=== PATIENT | female | born 1945 | race Caucasian/White ===

== ENCOUNTER 2020-10-01 12:18 | Outpatient (REF) | payer MEDICARE, SELFPAY ==
[2020-10-01 14:18] LABS: Prothrombin Time 11.3 SEC (9.9-13.0)
[2020-10-01 14:45] LABS: Erythrocyte Sedimentation Rate 4 MM/HR (0-20)
[2020-10-02 10:06] LABS: Syphilis Screen Nonreactive (Nonreactive)
[2020-10-02 21:16] LABS: Lyme Abs Screen <0.90 index
[2020-10-06 06:16] LABS: Angiotensin Converting Enzyme 24 U/L (9-67)
== END 2020-10-01 12:19 | disposition home or self-care (01) ==
LOC: HO.WFDLDS 12:18
PROVIDERS: Visit Provider Psychiatry & Neurology Neurology
DX: G51.0 Bell's palsy (principal)
CPT/HCPCS: 36415; 82164; 85610; 85652; 86617; 86618; 86780

== ENCOUNTER 2020-10-08 09:11 | Day surgery (SDC) | payer MEDICARE, SELFPAY ==
--- NOTE | ~2020-10-08 | FL_ITS ---
PROCEDURE: FLUOROSCOPY-GUIDED LUMBAR PUNCTURE CLINICAL INFORMATION: Facial neuropathy. COMPARISON: None TECHNIQUE: Following explaining fluoroscopy-guided lumbar puncture procedure, benefits and risk, a written consent was obtained. Patient was placed prone on fluoroscopy table and low back area was cleaned and draped in the usual sterile manner. 1% lidocaine was injected overlying the L4-L5 disc level. A 22-gauge spinal needle was then inserted from the skin intrathecally at the L4-L5 disc level. After observing CSF return, patient was quickly placed in the left lateral decubitus view and opening CSF pressure was obtained. Subsequently fluid was collected in 4 test tubes. The stylet was reintroduced and needle removed. Complete hemostasis achieved at puncture site with sterile dressing applied postprocedure. Patient tolerated procedure extremely well. FINDINGS: On this single image obtained on fluoroscopy the vertebral heights, alignment are maintained normal. There is sclerotic appearance of the left L2 and L3 pedicles and overlying vertebral body. Fluoroscopy-guided L3-L4 lumbar puncture performed. The opening CSF pressure measures 13 cm of water. Approximately 9 mL of clear CSF fluid collected in 4 test tubes and sent to lab as per referring physician's orders. FLUOROSCOPY TIME: 1.2 minutes. DOSE AREA PRODUCT: 15.197 uGy-m2 (microgray-meter squared). FL/FL guided lumbar puncture LP IMPRESSION: Successful fluoroscopy-guided lumbar puncture performed without immediate complications. Sclerotic appearing L2 and L3 pedicles.
[2020-10-08 09:25] LABS: MANUAL DIFF FLAG NO
[2020-10-08 09:26] LABS: Basophils Percent Auto 0.1 % (0-2); Eosinophils Percent Auto 0.1 % (0-4); Hemoglobin 15.7 g/dl (12.0-16.0); Imm Gran Abs Auto 0.06 X10*3/uL (0.00-0.03); Imm Gran Pct Auto 0.5 % (0.0-0.4); Lymphocytes Absolute Auto 1.3 X10*3/uL (1.2-4.9); Mean Corpuscular HGB Conc 32.7 g/dl (31.0-35.0); Mean Corpuscular Hemoglobin 28.1 pg (27.0-33.0); Mean Platelet Volume 10.1 fL (9.4-12.3); Monocytes Absolute Auto 0.8 X10*3/uL (0.1-1.2); Monocytes Percent Auto 7.3 % (2-11); Neutrophils Absolute Auto 8.8 X10*3/uL (2.0-8.3); Platelet Count 229 X10*3/uL (160-400); Red Blood Count 5.58 X10*6/uL (4.20-5.50); Red Cell Distribution Width 14.2 % (11.0-16.0); White Blood Count 10.9 X10*3/uL (4.8-10.8)
[2020-10-08 09:27] VITALS: BMI 37.8
[2020-10-08 09:32] LABS: INTERNATIONAL NORM RATIO 0.9 (0.9-1.1); Prothrombin Time 10.7 SEC (9.9-13.0)
[2020-10-08 09:35] LABS: Partial Thromboplastin Time 31.7 SEC (24.1-38.0)
[2020-10-08 11:48] VITALS: BP 172/94; PULSE 67; RESP 16; TEMP 36.2; O2SAT 96
[2020-10-08 12:16] VITALS: BP 171/92; PULSE 66; RESP 16; O2SAT 97
[2020-10-08 12:31] LABS: CSF Appearance Clear, Colorless; CSF Tube # 3
[2020-10-08 12:41] LABS: Glucose CSF 77 mg/dL; Total Protein CSF 52.9 mg/dL (15-45)
[2020-10-08 12:45] VITALS: BP 167/89; PULSE 70; RESP 16; O2SAT 96
[2020-10-08 13:19] LABS: Appearance CSF CLEAR; CSF Monos 40 %; CSF Other Cells % 0 %; CSF Tube # 4; CSF Volume 3.5 ML; Color CSF COLORLESS; Lymphocytes CSF 60 %; Neutrophils CSF 0 %; Red Blood Cell CSF 35 MM*3; White Blood Cell CSF 4 MM*3
[2020-10-08 13:45] VITALS: BP 153/82; PULSE 69; RESP 18; O2SAT 95
[2020-10-08 13:52] LABS: Oligoclonal Serum Yes
[2020-10-08 14:29] VITALS: BP 157/88; PULSE 76; RESP 16; TEMP 36.4; O2SAT 96
[2020-10-13 01:45] LABS: Albumin 3.8 g/dL (3.2-4.6); Albumin, CSF 35.7 mg/dL (8.0-42.0); IgG 713 mg/dL (600-1540); IgG Synthesis Rate -3.4 mg/24 h (-9.9-3.3); IgG, CSF 2.8 mg/dL (0.8-7.7)
== END 2020-10-08 14:36 | disposition home or self-care (01) ==
PROVIDERS: Radiology Diagnostic Radiology; PCP Pediatrics; Visit Provider Psychiatry & Neurology Neurology
PROC: 009U3ZZ Drainage of Spinal Canal, Percutaneous Approach (ICD-10-PCS; CPT 62270; principal; 2020-10-08 11:00)
DX: G51.0 Bell's palsy (principal); D36.10 Benign neoplasm of peripheral nerves and autonomic nervous system, unspecified; I67.89 Other cerebrovascular disease; Z79.899 Other long term (current) drug therapy; Z88.0 Allergy status to penicillin; Z88.8 Allergy status to other drugs, medicaments and biological substances
CPT/HCPCS: 36415; 62328; 82042; 82945; 83916; 84157; 85025; 85610; 85730; 87015; 87070; 87205; 89051